=== PATIENT | male | born 1975 | race Two or more races ===

== ENCOUNTER 2020-08-19 23:23 | Emergency (ER) | payer OTHER, SELFPAY ==
--- NOTE | ~2020-08-19 | XR_ITS ---
EXAMINATION: XR ABDOMEN KUB CLINICAL INDICATION: constipation? COMPARISON: CT dated 06/03/2019 TECHNIQUE: AP view of the abdomen. FINDINGS: The bowel gas pattern is normal with no evidence of ileus or obstruction. There is a physiologic amount of stool, most notably within the cecum and ascending colon. No unusual soft tissue calcifications are noted. 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 XR/XR KUB IMPRESSION: Physiologic stool volume. No evidence of obstruction or ileus.
[2020-08-19 23:36] VITALS: BP 135/88; PULSE 56; RESP 18; TEMP 36.8; O2SAT 100; BMI 25.1
--- NOTE | 2020-08-20 01:23 | ED.GENADULT ---
HPI - General Adult General Chief complaint: General Medical Stated complaint: Multiple complaints Time Seen by Provider: 08/20/20 00:33 Source: patient Mode of arrival: ambulatory Limitations: no limitations History of Present Illness HPI narrative: Patient comes to the emergency room complaining of constipation, rectal bleeding. However, patient has changed his chief complain multiple times, initially he said that he was here for constipation, then he said he was here for thrush, then he complained of feeling tired, then complain of painless rectal bleeding. Patient is a poor historian. Patient keeps changing his story when the onset of each complaint was, ranging between 3 months to a year. Then once again, patient changed his chief complaint to insomnia. Related Data Allergies Allergy/AdvReac Type Severity Reaction Status Date / Time No Known Allergies Allergy Verified 08/19/20 23:36 Review of Systems Review of Systems: Constitutional : No Weight loss, No Fever, No Chills, No Night Sweats, complaining of chronic fatigue ENT/Mouth : No Hearing loss, No Ear Pain, No Nasal Congestion, No Sinus Pain, No Hoarseness, No sore throat, No Rhinorrhea, No Swallowing Difficulty Eyes: No Eye Pain, No Swelling, No Redness, No Foreign Body, No Discharge, No Vision Changes Cardiovascular : No Chest Pain, No SOB, No Dyspnea on Exertion, No Orthopnea, No Edema, No Palpitations Respiratory : No Cough, No Sputum, No Wheezing, No Smoke Exposure, No Dyspnea Gastrointestinal : No Nausea, No Vomiting, No Diarrhea, planing of Constipation, No abdominal Pain, complaining rectal bleeding, no rectal pain Genitourinary : no irregular bleeding, No Dysuria, No Urinary Frequency, No Hematuria, No Urinary Incontinence, No Urgency, No Flank Pain, No Urinary Flow Changes, No Hesitancy Musculoskeletal : No joint pain, No Myalgias, No Joint Swelling Skin : No Skin Lesions, No rash Neuro : No Weakness, No Numbness, No Paresthesias, No Loss of Consciousness, No Dizziness, No Headache Psych : No Anxiety/Panic, No Depression, No SI/HI/AH/VH, No Social Issues, Heme/Lymph: No Bruising, No Bleeding,No Lymphadenopathy Endocrine : No Polyuria, No Polydipsia, No Temperature Intolerance PMFSH Past Medical History Medical History (Updated 08/20/20 @ 02:14 by Tere Boateng MD) Colitis Goiter Hypertension Hypothyroidism Social History Social History Smoking Status: Never smoker Use of substances other than those prescribed or required for medical reasons: Yes Substance Use Type: Marijuana Advance Directives: No Physical Exam Vital Signs: Vital Signs: Last Vital Signs Temp 98.3 F 08/19/20 23:36 Pulse 56 08/19/20 23:36 Resp 18 08/19/20 23:36 BP 135/88 08/19/20 23:36 Pulse Ox 100 08/19/20 23:36 Body Mass Index 25.1 Appearance: Alert. Oriented X3. No acute distress. Eyes: Pupils equal, round and reactive to light. ENT: Pharynx normal. Neck: Normal inspection. Neck supple. No lymph nodes noted. No crepitus CVS: Normal heart rate and rhythm. Pulses normal. Normal S1 and S2 Respiratory: No respiratory distress. Breath sounds normal. No Wheezing. No rales Abdomen: Soft and nontender. No rigidity. No distention. good BS x4, rectal exam: No internal or external hemorrhoids, no anal fissures, brown stool on NIKOS Skin: Skin warm and dry. Normal skin color. Normal skin turgor. Extremities: No lower extremity edema. No lower extremity edema. No Lacerations. No Rash Neuro: Oriented X 3. No motor deficit. No sensory deficit. Moving all extermities. No slurred speech. Course Course Course Narrative: Discussed the labs and imaging with the patient, there is no acute pathology Medical Decision Making Lab Data Result diagrams: 08/20/20 01:08/20/20 01:28 Labs: Lab Results 08/20/20 08/20/20 08/20/20 Range/Units 01:28 01:28 01:28 WBC 7.3 (4.8-10.8) X10*3/uL RBC 4.02 L (4.60-5.80) X10*6/uL Hgb 13.2 L (14.0-18.0) g/dl Hct 37.6 L (42-52) % MCV 93.5 (80-98) fL MCH 32.8 (27.0-33.0) pg MCHC 35.1 (31.0-36.0) g/dl RDW 13.3 (11.0-16.0) % Plt Count 175 (160-400) X10*3/uL MPV 9.0 L (9.4-12.4) fL Immature Gran % (Auto) 0.3 (0.0-0.4) % Neut % (Auto) 52.3 (45-73) % Lymph % (Auto) 40.3 H (20-40) % [place] % (Auto) 4.0 (2-11) % Eos % (Auto) 2.3 (0-4) % Baso % (Auto) 0.8 (0-2) % Lymph # (Auto) 3.0 (1.2-4.9) X10*3/uL [place] # (Auto) 0.3 (0.1-1.2) X10*3/uL Eos # (Auto) 0.2 (0.0-0.4) X10*3/uL Baso # (Auto) 0.1 (0.0-0.2) X10*3/uL Abs Immat Gran (auto) 0.02 (0.00-0.03) X10*3/uL Absolute Neuts (auto) 3.8 (2.0-8.3) X10*3/uL Absolute Nucleated RBC 0.000 (0.0-0.012) X10*3/uL Nucleated RBC % (auto) 0.0 (0.0-0.2) /100WBC Sodium 138 (135-145) mmol/L Potassium 3.9 (3.3-5.1) mmol/L Chloride 101 (96-108) mmol/L Carbon Dioxide 30 H (22-29) mmol/L Anion Gap 11 L (12-20) BUN 11 (9-16) mg/dL Creatinine 0.88 (0.5-1.4) mg/dL Estim Creat Clear Calc 101.4 Estimated GFR > 60 Random Glucose 87 (60-115) mg/dL Calcium 9.4 (8.4-10.2) mg/dL Total Bilirubin 0.5 (0.0-1.0) mg/dL Direct Bilirubin < 0.2 (0.0-0.5) mg/dL AST 22 (5-37) U/L ALT 12 (0-40) U/L Alkaline Phosphatase 51 (39-117) U/L Total Protein 7.7 (6.5-8.0) g/dL Albumin 5.1 H (3.5-5.0) g/dL Stool Occult Blood NEG (NEG) Imaging Data KUB: Radiologist's impression: The bowel gas pattern is normal with no evidence of ileus or obstruction. There is a physiologic amount of stool, most notably within the cecum and ascending colon. No unusual soft tissue calcifications are noted. 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 XR/XR KUB IMPRESSION: Physiologic stool volume. No evidence of obstruction or ileus. Discharge Plan Discharge Clinical Impression: Fatigue, Abdominal distension Patient Disposition: Home, Self-Care Instructions: Fatigue (ED) Additional Instructions: Please follow-up with your primary care physician tomorrow. If you have any worsening or new symptoms, please return to the emergency room or call 911
[2020-08-20 01:33] LABS: MANUAL DIFF FLAG NO; OBS1 NEG (NEG)
[2020-08-20 01:34] LABS: Basophils Absolute Auto 0.1 X10*3/uL (0.0-0.2); Basophils Percent Auto 0.8 % (0-2); Eosinophils Absolute Auto 0.2 X10*3/uL (0.0-0.4); Eosinophils Percent Auto 2.3 % (0-4); Hematocrit 37.6 % (42-52); Hemoglobin 13.2 g/dl (14.0-18.0); Imm Gran Abs Auto 0.02 X10*3/uL (0.00-0.03); Imm Gran Pct Auto 0.3 % (0.0-0.4); Lymphocytes Percent Auto 40.3 % (20-40); Mean Corpuscular HGB Conc 35.1 g/dl (31.0-36.0); Mean Corpuscular Hemoglobin 32.8 pg (27.0-33.0); Mean Corpuscular Volume 93.5 fL (80-98); Monocytes Absolute Auto 0.3 X10*3/uL (0.1-1.2); Neutrophils Absolute Auto 3.8 X10*3/uL (2.0-8.3); Neutrophils Percent Auto 52.3 % (45-73); OBS Int Ctl Valid YES; Platelet Count 175 X10*3/uL (160-400); Red Blood Count 4.02 X10*6/uL (4.60-5.80); Red Cell Distribution Width 13.3 % (11.0-16.0); White Blood Count 7.3 X10*3/uL (4.8-10.8)
[2020-08-20 02:03] LABS: Alanine Aminotransferase 12 U/L (0-40); Albumin Level 5.1 g/dL (3.5-5.0); Alkaline Phosphatase 51 U/L (39-117); Anion Gap 11 (12-20); Aspartate Amino Transferase 22 U/L (5-37); Bilirubin Direct < 0.2 mg/dL (0.0-0.5); Bilirubin Total 0.5 mg/dL (0.0-1.0); Blood Urea Nitrogen 11 mg/dL (9-16); Calcium 9.4 mg/dL (8.4-10.2); Carbon Dioxide 30 mmol/L (22-29); Chloride 101 mmol/L (96-108); Creatinine Clr Calc Pharmacy 101.4; Estimated Glomerular Filt Rate > 60; Glucose Random 87 mg/dL (60-115); Potassium 3.9 mmol/L (3.3-5.1); Sodium 138 mmol/L (135-145); Total Protein 7.7 g/dL (6.5-8.0)
== END 2020-08-20 02:35 | disposition home or self-care (01) ==
PROVIDERS: Emergency Provider Emergency Medicine
DX: R14.0 Abdominal distension (gaseous) (principal); K59.00 Constipation, unspecified; R53.83 Other fatigue; F12.90 Cannabis use, unspecified, uncomplicated; Z79.899 Other long term (current) drug therapy
CPT/HCPCS: 36415; 74018; 80048; 80076; 82272; 85025; 99284

== ENCOUNTER 2021-11-21 13:24 | Emergency (ER) | payer OTHER, SELFPAY ==
[2021-11-21 13:27] VITALS: BP 179/92; PULSE 75; RESP 19; TEMP 36.6; O2SAT 100; BMI 25.8
--- NOTE | 2021-11-21 13:36 | ED_ITS ---
HPI - Psych General Chief Complaint: Psychiatric Symptoms Stated Complaint: crisis Time Seen by Provider: 11/21/21 13:35 Source: patient and EMS Mode of arrival: EMS Limitations: no limitations History of Present Illness HPI Narrative: Patient is a 46 year old male presenting to the emergency department today with suicidal ideation. Patient states that his kids got taken from him and now he is suicidal. Patient denies any dizziness, lightheadedness, abdominal pain, nausea, vomiting, fever, chills, blurry vision, double vision, loss of vision, chest pain, difficulty breathing, shortness of breath, back pain, night sweats, pain with urination, increased urinary frequency, increased urinary urgency, blood in his urine or stool, syncope or a near syncopal episode, recent trauma or falls, bowel incontinence, bladder incontinence, bowel retention, bladder retention, or any other complaints at this time. MD complaint: suicidal ideation and feels depressed Onset (ago): day(s) Duration: constant History of same: Yes Relieving factors: none Exacerbating factors: none Context: significant life stressor Associated psychiatric symptoms: none Associated symptoms: denies other symptoms Treatments prior to arrival: none Related Data Allergies Allergy/AdvReac Type Severity Reaction Status Date / Time No Known Allergies Allergy Verified 08/19/20 23:36 Review of Systems Constitutional: Constitutional: Reports no additional constitutional complaints, Denies chills, Denies fever(s) and Denies night sweats Eyes: Eyes: Reports no additional eye complaints, Denies blurry vision, Denies change in vision, Denies diplopia, Denies eye discharge, Denies loss of vision and Denies eye pain ENT: Denies dizziness Cardiovascular: Cardiovascular: Reports no additional cardiovascular complaints, Denies chest pain, Denies lightheadedness, Denies Loss of Conscious ness and Denies dyspnea Respiratory: Respiratory: Reports no additional respiratory complaints and Denies dyspnea Gastrointestinal: Gastrointestinal: Reports no additional gastrointestinal com plaints, Denies abdominal pain, Denies melena, Denies hematochezia, Denies change in bowel habits and Denies change in stool character Genitourinary: Genitourinary: Reports no additional male genitourinary complaints, Denies hematuria, Denies oliguria, Denies difficulty urinating, Denies dysuria, Denies urinary frequency, Denies urinary hesitancy, Denies urinary incontinence and Denies urinary urgency Musculoskeletal: Musculoskeletal: Reports no additional musculoskeletal complaints, Denies numbness and Denies tingling Neurologic: Denies dizziness, Denies loss of vision, Denies numbness and Denies tingling Psychiatric: Psychiatric: Reports no additional psychiatric complaints, Reports depression and Reports suicidal ideation Endocrine: Endocrine: Reports no additional endocrine complaints Hematologic/Lymphatic: Hematologic/Lymphatic: Reports no additional hematologic/lymphatic complaints Allergic/Immunologic: Allergic/Immunologic: Reports no additional allergic/immunologic complaints PMFSH Past Medical History Attestation statement: The following information was validated with the patient. Source: old records reviewed Medical History Colitis Goiter Hypertension Hypothyroidism Social History Social History Substance Use Type: Marijuana Advance Directives: No Advance Directives Information Provided: No Physical Exam Vital Signs: Vital Signs: Last Vital Signs Temp 97.9 F 11/21/21 16:19 Pulse 74 11/21/21 16:19 Resp 18 11/21/21 16:19 BP 132/65 11/21/21 16:19 Pulse Ox 95 11/21/21 16:19 O2 Del Method 11/21/21 16:19 BMI result Body Mass Index 25.8 Const: General: cooperative, no acute distress, alert and awake Nutritional Appearance: well nourished Orientation/consciousness: patient oriented x3 Limitations: no limitations HEENT: Head: Yes normal to inspection and Yes atraumatic Ears: hearing grossly normal bilaterally and external ears normal General nose exam: Normal external nose present, no nasal discharge noted and no epistaxis Face and sinus: Yes normal facial exam, No abrasion and No laceration Mouth: Normal oral and palatal mucosa present, no drooling and no muffled voice Eyes: General: appearance normal, both eyes and all related structures Periorbital: periorbital findings normal Eyelids: Yes eyelids normal Conjunctivae: conjunctivae normal Pupils: Equal, round and reactive pupils present EOM: EOMs intact bilaterally Neck: Neck: Yes normal visual inspection, Yes full ROM and Yes no lymphadenopathy Chest: Chest palpation & inspection: normal inspection of the chest Resp: Effort & Inspection: normal respiratory effort and able to speak in complete sentences Auscultation: clear to auscultation bilaterally Cardio: Rate: regular rate Rhythm: regular rhythm GI: Inspection: Yes normal to inspection Neuro: General: patient oriented x3 and moves all extremities Cranial nerves: Yes Equal, round and reactive pupils present Cognition (Neuro): normal cognition Motor exam (neuro): 5/5 motor strength present throughout Sensory Exam: Normal double simultaneous stimulation for sensation Coordination: [id number] test normal Extrem: General: Yes normal to inspection, Yes full ROM and Yes capillary refill normal Psych: Appearance: grossly normal Mental Status: mental status grossly normal Affect: normal affect Attitude: cooperative Thought process: Normal thought process present Thought content: Suicidality present Insight: Good insight present (Psych) MDM - Psych MDM Narrative Medical decision making narrative: Patient is a 46 year old male presenting to the emergency department today with suicidal ideation. Patient's physical exam was unremarkable. Patient's blood work was unremarkable. I explained my physical exam findings as well as all test results to the patient. I answered all questions asked by the patient. Patient is still awaiting BHN/Crisis evaluation. Patient verbalized agreement and understanding with this treatment plan and awaiting BHN/Crisis evaluation. Differential Diagnosis Differential diagnosis: Likely suicidal ideation Medical Records Attestation: I reviewed the patient's medical records. Lab Data Attestation: I reviewed the patient's lab results. Result diagrams: 11/21/21 13:56 11/21/21 13:56 Labs: Lab Results 11/21/21 11/21/21 11/21/21 Range/Units 13:56 13:56 13:56 WBC 6.2 (4.8-10.8) X10*3/uL RBC 3.62 L (4.60-5.80) X10*6/uL Hgb 11.5 L (14.0-18.0) g/dl Hct 33.2 L (42.0-52.0) % MCV 91.7 (80.0-98.0) fL MCH 31.8 (27.0-33.0) pg MCHC 34.6 (31.0-36.0) g/dl RDW 14.1 (11.0-16.0) % Plt Count 177 (160-400) X10*3/uL MPV 8.3 L (9.4-12.4) fL Immature Gran % (Auto) 0.6 H (0.0-0.4) % Neut % (Auto) 71.6 (45-73) % Lymph % (Auto) 22.5 (20-40) % [place] % (Auto) 3.9 (2-11) % Eos % (Auto) 0.8 (0-4) % Baso % (Auto) 0.6 (0-2) % Lymph # (Auto) 1.4 (1.2-4.9) X10*3/uL [place] # (Auto) 0.2 (0.1-1.2) X10*3/uL Eos # (Auto) 0.1 (0.0-0.4) X10*3/uL Baso # (Auto) 0.0 (0.0-0.2) X10*3/uL Abs Immat Gran (auto) 0.04 H (0.00-0.03) X10*3/uL Absolute Neuts (auto) 4.5 (2.0-8.3) x10*3/uL Absolute Nucleated RBC 0.000 (0.0-0.012) X10*3/uL Nucleated RBC % (auto) 0.0 (0.0-0.2) /100WBC Sodium 135 (135-145) mmol/L Potassium 3.6 (3.3-5.1) mmol/L Chloride 99 (96-108) mmol/L Carbon Dioxide 29 (22-29) mmol/L Anion Gap 11 L (12-20) BUN 9 (9-16) mg/dL Creatinine 1.06 (0.5-1.4) mg/dL Estim Creat Clear Calc 82.4 Estimated GFR > 60 Random Glucose 128 H D (60-115) mg/dL Calcium 9.3 (8.4-10.2) mg/dL Total Bilirubin 0.3 (0.0-1.0) mg/dL AST 18 (5-37) U/L ALT 9 (0-40) U/L Alkaline Phosphatase 56 (39-117) U/L Total Protein 7.1 (6.5-8.0) g/dL Albumin 4.5 (3.5-5.0) g/dL COVID-19 (KASHIF) Negative (Negative) COVID-19 Clin Com See Note Discharge Plan Discharge Clinical Impression: Depression, Suicidal ideation Patient Disposition: Still a Patient Print Language: Spanish
[2021-11-21 14:01] LABS: MANUAL DIFF FLAG NO
[2021-11-21 14:03] LABS: Basophils Percent Auto 0.6 % (0-2); Eosinophils Absolute Auto 0.1 X10*3/uL (0.0-0.4); Eosinophils Percent Auto 0.8 % (0-4); Hematocrit 33.2 % (42.0-52.0); Hemoglobin 11.5 g/dl (14.0-18.0); Imm Gran Abs Auto 0.04 X10*3/uL (0.00-0.03); Imm Gran Pct Auto 0.6 % (0.0-0.4); Lymphocytes Absolute Auto 1.4 X10*3/uL (1.2-4.9); Lymphocytes Percent Auto 22.5 % (20-40); Mean Corpuscular HGB Conc 34.6 g/dl (31.0-36.0); Mean Corpuscular Hemoglobin 31.8 pg (27.0-33.0); Mean Corpuscular Volume 91.7 fL (80.0-98.0); Mean Platelet Volume 8.3 fL (9.4-12.4); Monocytes Absolute Auto 0.2 X10*3/uL (0.1-1.2); Monocytes Percent Auto 3.9 % (2-11); Neutrophils Absolute Auto 4.5 x10*3/uL (2.0-8.3); Neutrophils Percent Auto 71.6 % (45-73); Platelet Count 177 X10*3/uL (160-400); Red Blood Count 3.62 X10*6/uL (4.60-5.80); Red Cell Distribution Width 14.1 % (11.0-16.0); White Blood Count 6.2 X10*3/uL (4.8-10.8)
[2021-11-21 14:19] LABS: Alanine Aminotransferase 9 U/L (0-40); Albumin Level 4.5 g/dL (3.5-5.0); Alkaline Phosphatase 56 U/L (39-117); Anion Gap 11 (12-20); Aspartate Amino Transferase 18 U/L (5-37); Bilirubin Total 0.3 mg/dL (0.0-1.0); Blood Urea Nitrogen 9 mg/dL (9-16); Calcium 9.3 mg/dL (8.4-10.2); Carbon Dioxide 29 mmol/L (22-29); Chloride 99 mmol/L (96-108); Creatinine Clr Calc Pharmacy 82.4; Estimated Glomerular Filt Rate > 60; Glucose Random 128 mg/dL (60-115); Potassium 3.6 mmol/L (3.3-5.1); Sodium 135 mmol/L (135-145); Total Protein 7.1 g/dL (6.5-8.0)
[2021-11-21 14:23] LABS: COVID-19 Test Negative (Negative); IDNOW Serial# 9DB6401D
--- NOTE | 2021-11-21 14:27 | PC.NURSE ---
this typewriter mechanic assumed care of this pt at 1420. pt brought over to POD via wheelchair. pt compliant with liner roll changer. no issues observed/reported. will continue to observe.
[2021-11-21 16:19] VITALS: BP 132/65; PULSE 74; RESP 18; TEMP 36.6; O2SAT 95
[2021-11-21] MEDS: Acetaminophen 325 MG TABLET 650 MG PO (16:36)
--- NOTE | 2021-11-21 18:18 | PC.NURSE ---
PT'S GIRLFRIEND MAKAYLA EMERGENCY CONTACT [phone] AT BEDSIDE. PT CRYING AND REQUESTING TO GO HOME. PER GIRLFRIEND PT CANNOT GO HOME WITH HER BECAUSE HE IS NOT ALLOWED TO BE AROUND HER DAUGHTER. SHE ALSO STATES THAT SHE IS HOMELESS AND STAYS WITH HER CLIENT.
[2021-11-21 19:52] VITALS: BP 150/91; PULSE 55; RESP 16; TEMP 36.5; O2SAT 99
[2021-11-21 23:19] VITALS: BP 144/76; PULSE 53; RESP 16; TEMP 36; O2SAT 96
[2021-11-21 23:47] LABS: Amphetamine Screen Urine Not Detected (Not Detect); Barbiturates, Urine Not Detected (Not Detect); Benzodiazepines Screen Urine Not Detected (Not Detect); Cannabinoid Screen Urine POSITIVE (Not Detect); Cocaine Screen Urine Not Detected (Not Detect); Fentanyl, urine Not Detected (Not Detect); Opiate Screen Urine Not Detected (Not Detect); Phencyclidine Screen Urine Not Detected (Not Detect)
[2021-11-21] MEDS: Melatonin 3 MG TABLET 6 MG PO (23:57)
--- NOTE | 2021-11-22 06:51 | PC.NURSE ---
Patient slept through the night, no distress observed/reported, VSS, behavior non concerning, awaiting BHN evaluation in the morning, patient is currently not on any medication, will continue to monitor.
--- NOTE | 2021-11-22 10:35 | PC.NURSE ---
PT SEEN BY [facility] CLINICIAN AND IS NOW CLEAR FOR DISCHARGE. PT WILL BE DAIRY FROZEN MANAGER BY HIS GIRLFRIEND MAKAYLA. [facility] CLINICIAN IS CURRENTLY ARRANGING TIMEFRAME FOR MAKAYLA TO PICK HIM UP. NO COMPLAINTS.
== END 2021-11-22 10:53 | disposition home or self-care (01) ==
PROVIDERS: Physician Assistant Medical; Emergency Provider Student in an Organized Health Care Education/Training Program
DX: F33.1 Major depressive disorder, recurrent, moderate (principal); R45.851 Suicidal ideations; F12.90 Cannabis use, unspecified, uncomplicated; Z79.899 Other long term (current) drug therapy; Z20.822 Contact with and (suspected) exposure to COVID-19
CPT/HCPCS: 80053; 80307; 85025; 87635; 99285

== ENCOUNTER 2022-10-01 16:35 | Emergency (ER) | payer OTHER, SELFPAY ==
--- NOTE | ~2022-10-01 | XR_ITS ---
EXAMINATION: XR KUB, XR chest 2V CLINICAL INFORMATION: Rib pain . Constipation. COMPARISON: 06/01/2016 TECHNIQUE: PA and lateral views of the chest. One view, 2 images of the abdomen. FINDINGS: Chest: The lungs are well expanded. There is no focal consolidation, edema, or effusion. No pneumothorax. The cardiomediastinal silhouette is within normal limits. No acute osseous abnormality. ABDOMEN: Normal bowel gas pattern without dilated loops of bowel. No obstruction. Scattered gas and stool throughout the colon. Mild stool burden throughout the right hemicolon with decompressed appearance of the left colon. No acute osseous abnormality. XR/XR KUB IMPRESSION: 1. Clear lungs. No focal rib abnormality identified. 2. Nonobstructive bowel gas pattern. Mild stool burden throughout the right hemicolon.
--- NOTE | ~2022-10-01 | XR_ITS ---
EXAMINATION: XR KUB, XR chest 2V CLINICAL INFORMATION: Rib pain . Constipation. COMPARISON: 06/01/2016 TECHNIQUE: PA and lateral views of the chest. One view, 2 images of the abdomen. FINDINGS: Chest: The lungs are well expanded. There is no focal consolidation, edema, or effusion. No pneumothorax. The cardiomediastinal silhouette is within normal limits. No acute osseous abnormality. ABDOMEN: Normal bowel gas pattern without dilated loops of bowel. No obstruction. Scattered gas and stool throughout the colon. Mild stool burden throughout the right hemicolon with decompressed appearance of the left colon. No acute osseous abnormality. XR/XR chest 2V IMPRESSION: 1. Clear lungs. No focal rib abnormality identified. 2. Nonobstructive bowel gas pattern. Mild stool burden throughout the right hemicolon.
--- NOTE | 2022-10-01 16:38 | ECG_ITS ---
Test Reason : cx pain Blood Pressure : / mmHG Vent. Rate : 057 BPM Atrial Rate : 057 BPM P-R Int : 160 ms QRS Dur : 092 ms QT Int : 420 ms P-R-T Axes : 023 -27 -03 degrees QTc Int : 408 ms Sinus bradycardia Otherwise normal ECG When compared with ECG of 11-OCT-2015 04:54, T wave inversion now evident in Inferior leads Referred By: Generic ED Physician Electronically Signed By:Mike Hawkins
[2022-10-01 17:26] VITALS: BP 169/97; PULSE 68; RESP 16; TEMP 36.4; O2SAT 100; BMI 24.7
--- NOTE | 2022-10-01 17:27 | ED_ITS ---
HPI - Chest Pain General Chief Complaint: General Medical <GEORGE Briones - Last Filed: 10/01/22 17:38> Stated Complaint: Chest pain <GEORGE Briones - Last Filed: 10/01/22 17:38> Time Seen by Provider: 10/01/22 21:24 <GEORGE Briones - Last Filed: 10/01/22 17:38> Source: patient and family <Edgardo Trujillo MD - Last Filed: 10/01/22 22:53> Mode of arrival: ambulatory <Edgardo Trujillo MD - Last Filed: 10/01/22 22:53> Limitations: no limitations <Edgardo Trujillo MD - Last Filed: 10/01/22 22:53> History of Present Illness HPI narrative: 47-year-old male presents with chest pain. The chest pain has been constant for 1 month. The pain is worse with movement and deep inspiration. Bilateral. Describes the pain as sharp and achy. The pain is so severe he can not sleep. He also has associated shortness of breath. He has had no fevers or chills. No swelling in the lower extremities. No history of PE or DVT. The pain is not worse with exertion. He has no significant cardiac history. Patient also complains of mucousy stool. This is also been going on for quite some time. Had endoscopies have never determined a cause of his symptoms. He is on magnesium citrate on a daily basis for constipation. He denies any nausea vomiting. Patient is quite upset frustrated due to the lack of diagnoses. He does not have a primary care provider at this time. <Edgardo Trujillo MD - Last Filed: 10/01/22 22:53> Related Data Home Medications: Previous Rx's Medication Instructions Recorded celecoxib 100 mg capsule (Celebrex) 200 mg PO DAILY #14 caps 10/01/22 cyclobenzaprine 10 mg tablet 10 mg PO TID PRN muscle spasm #10 10/01/22 tabs gabapentin 300 mg capsule 300 mg PO TID #20 caps 10/01/22 <GEORGE Briones Last Filed: 10/01/22 17:38> Allergies/Adverse Reactions: Allergies Allergy/AdvReac Type Severity Reaction Status Date / Time No Known Allergies Allergy Verified 08/19/20 23:36 <GEORGE Briones Last Filed: 10/01/22 17:38> [facility] Past Medical History Medical History: Medical History Colitis Goiter Hypertension Hypothyroidism <GEORGE Briones - Last Filed: 10/01/22 17:38> Social History Social History: Social History Alcohol intake: never Smoked in Last 30 Days: No Use of substances other than those prescribed or required for medical reasons: No Substance Use Type: Marijuana Advance Directives: No Advance Directives Information Provided: No <GEORGE Briones - Last Filed: 10/01/22 17:38> Physical Exam Vital Signs: Vital Signs: Last Vital Signs Temp 98.7 F 10/01/22 21:08 Pulse 52 10/01/22 21:08 Resp 16 10/01/22 21:08 BP 188/97 H 10/01/22 21:08 Pulse Ox 100 10/01/22 21:08 O2 Del Method Room Air 10/01/22 21:08 BMI result Body Mass Index 24.7 <GEORGE Briones - Last Filed: 10/01/22 17:38> Vital Signs: Last Vital Signs Temp 98.7 F 10/01/22 21:08 Pulse 52 10/01/22 21:08 Resp 16 10/01/22 21:08 BP 188/97 H 10/01/22 21:08 Pulse Ox 100 10/01/22 21:08 O2 Del Method Room Air 10/01/22 21:08 BMI result Body Mass Index 24.7 <Edgardo Trujillo MD - Last Filed: 10/01/22 22:53> GEN: Well developed, no acute distress, alert, oriented, anxious and tearful HEENT: Normocephalic, atraumatic, normal external ears, nose appears normal, no oropharyngeal edema or exudates Eyes: Normal to appearance Neck: Supple, no lymphadenopathy Respiratory: Talks in complete sentences, no respiratory distress, clear to auscultation bilaterally Cardiovascular: Regular rate and rhythm, no murmurs rubs or gallops Abdomen: Soft, nontender, nondistended, no guarding, no rebound Back: No CVA tenderness Extremities: No clubbing cyanosis or edema Neurologic: No focal neurologic deficits, cranial nerves 2-12 intact, strength is 5/5 bilaterally Skin: No rash Chest: Reproducible chest wall tenderness bilaterally to palpation <Edgardo Trujillo MD - Last Filed: 10/01/22 22:53> Course Course Course Narrative: RME: 47yo M w/PMHx thyroid issue (noncompliant w/meds) c/o bone/whole body pain, bilateral rib/chest & abdominal pain x1 mos. Reports constipation w/o BM x1 mos. denies fever, chills, N/V. abdomen soft & nontender EKG, labs, UA, KUB ordered Full HPI, ROS and PE to be performed by primary ED provider. <GEORGE Briones - Last Filed: 10/01/22 17:38> Reevaluation(s) Reevaluation #1: Workup is completed this time. There is no clear etiology for symptoms. I suspect his chest pain is due to musculoskeletal complaints possibly costochondritis. Patient would benefit from nonsteroidal anti-inflammatory pain medications as well as other analgesics. At regarding his constipation and mucousy stool, I recommend follow-up with GI. <Edgardo Trujillo MD - Last Filed: 10/01/22 22:53> Time: 21:55 <Edgardo Trujillo MD - Last Filed: 10/01/22 22:53> Reevaluation #2: patient would like to be discharged at this time. <Edgardo Trujillo MD - Last Filed: 10/01/22 22:53> Time: 22:53 <Edgardo Trujillo MD - Last Filed: 10/01/22 22:53> Medications Administered Discontinued Medications Generic Name Dose Route Start Last Admin Trade Name Alexus PRN Reason Stop Dose Admin Cyclobenzaprine HCl 10 mg 10/01/22 21:50 10/01/22 21:58 Cyclobenzaprine Hcl 10 Mg Tablet PO 10/01/22 21:51 10 mg ONCE ONE Administration Gabapentin 300 mg 10/01/22 21:50 10/01/22 21:58 Gabapentin 300 Mg Capsule PO 10/01/22 21:51 300 mg ONCE ONE Administration Ketorolac Tromethamine 30 mg 10/01/22 21:50 10/01/22 21:59 Ketorolac Tromethamine 30 Mg/Ml Vial IM 10/01/22 21:51 30 mg ONCE ONE Administration Oxycodone HCl 5 mg 10/01/22 21:50 10/01/22 21:58 Oxycodone Hcl Immed Release 5 Mg Tablet PO 10/01/22 21:51 5 mg ONCE ONE Administration <GEORGE Briones - Last Filed: 10/01/22 17:38> Medications Administered Discontinued Medications Generic Name Dose Route Start Last Admin Trade Name Alexus PRN Reason Stop Dose Admin Cyclobenzaprine HCl 10 mg 10/01/22 21:50 10/01/22 21:58 Cyclobenzaprine Hcl 10 Mg Tablet PO 10/01/22 21:51 10 mg ONCE ONE Administration Gabapentin 300 mg 10/01/22 21:50 10/01/22 21:58 Gabapentin 300 Mg Capsule PO 10/01/22 21:51 300 mg ONCE ONE Administration Ketorolac Tromethamine 30 mg 10/01/22 21:50 10/01/22 21:59 Ketorolac Tromethamine 30 Mg/Ml Vial IM 10/01/22 21:51 30 mg ONCE ONE Administration Oxycodone HCl 5 mg 10/01/22 21:50 10/01/22 21:58 Oxycodone Hcl Immed Release 5 Mg Tablet PO 10/01/22 21:51 5 mg ONCE ONE Administration <Edgardo Trujillo MD - Last Filed: 10/01/22 22:53> Medical Decision Making Medical Decision Making [facility] Narrative: 47-year-old male presents with 2 complaints. First of all he complains of chest pain. Chest pain has been going on for 1 month and is constant. Associated with movement, deep inspiration. Sometimes shortness of breath. On exam, he has reproducible chest wall tenderness to palpation. His cardiopulmonary exam is otherwise unremarkable. There is no evidence of lower extremity edema. Doubt PE, DVT, acute coronary syndrome, pneumonia, bronchitis. I suspect this is musculoskeletal in nature. Patient would probably be treated best with anti-inflammatory pain medications for 1 month in follow-up with a primary care provider at that time. The meantime, will obtain an EKG, laboratory analysis no chest X-ray. Also complains of mucousy stool. This has been an ongoing issue for quite some time. He has had significant workup which has been unremarkable. He is taking magnesium citrate for constipation. Differential diagnosis could tibial overgrowth, dysmotility. Given the duration of symptoms, I would recommend follow-up with Gastroenterology. There is no acute imaging required at this time. There is no rebound or guarding. Doubt catastrophic abdominal diagnoses. <Edgardo Trujillo MD - Last Filed: 10/01/22 22:53> Differential Diagnosis Differential Diagnoses: The differential diagnosis associated with the presentation includes (Will see above) <Edgardo Trujillo MD - Last Filed: 10/01/22 22:53> Lab Data MDM Lab Attestation statement: I reviewed the patient's lab results. <Edgardo Trujillo MD - Last Filed: 10/01/22 22:53> Result Diagrams: 10/01/22 18:00 10/01/22 18:00 <GEORGE Briones - Last Filed: 10/01/22 17:38> Labs: Lab Results 10/01/22 10/01/22 10/01/22 Range/Units 18:00 18:00 18:00 WBC 4.1 L (4.8-10.8) X10*3/uL RBC 3.98 L (4.60-5.80) X10*6/uL Hgb 12.3 L (14.0-18.0) g/dl Hct 36.2 L (42.0-52.0) % MCV 91.0 (80.0-98.0) fL MCH 30.9 (27.0-33.0) pg MCHC 34.0 (31.0-36.0) g/dl RDW 13.0 (11.0-16.0) % Plt Count 177 (160-400) X10*3/uL MPV 9.5 (9.4-12.4) fL Immature Gran % (Auto) 0.2 (0.0-0.4) % Neut % (Auto) 61.2 (45-73) % Lymph % (Auto) 31.9 (20-40) % [place] % (Auto) 3.6 (2-11) % Eos % (Auto) 1.9 (0-4) % Baso % (Auto) 1.2 (0-2) % Lymph # (Auto) 1.3 (1.2-4.9) X10*3/uL [place] # (Auto) 0.2 (0.1-1.2) X10*3/uL Eos # (Auto) 0.1 (0.0-0.4) X10*3/uL Baso # (Auto) 0.1 (0.0-0.2) X10*3/uL Abs Immat Gran (auto) 0.01 (0.00-0.03) X10*3/uL Absolute Neuts (auto) 2.5 (2.0-8.3) x10*3/uL Absolute Nucleated RBC 0.000 (0.0-0.012) X10*3/uL Nucleated RBC % (auto) 0.0 (0.0-0.2) /100WBC Sodium 141 (135-145) mmol/L Potassium 4.1 (3.3-5.1) mmol/L Chloride 106 (96-108) mmol/L Carbon Dioxide 27 (22-29) mmol/L Anion Gap 12 (12-20) BUN 15 (9-16) mg/dL Creatinine 1.07 (0.5-1.4) mg/dL Estim Creat Clear Calc 80.7 Estimated GFR > 60 Random Glucose 116 H (60-115) mg/dL Calcium 9.3 (8.4-10.2) mg/dL Magnesium 2.0 (1.6-2.6) mg/dL Total Bilirubin 0.4 (0.0-1.0) mg/dL Direct Bilirubin 0.1 (0.0-0.5) mg/dL AST 18 (5-37) U/L ALT 8 (0-40) U/L Alkaline Phosphatase 41 (39-117) U/L Troponin I High Sens (<3.5-35.0) ng/L Total Protein 7.0 (6.5-8.0) g/dL Albumin 4.8 (3.5-5.0) g/dL Lipase 15 (8-78) U/L TSH 75.14 H (0.32-4.0) uIU/mL Free T4 < 0.42 L (0.71-1.85) ng/dL Urine Color Urine Appearance Urine pH (5.0-9.0) Ur Specific [place] (1.005-1.025) Urine Protein (Neg-Trace) mg/dL Urine Glucose (UA) (Negative) mg/dL Urine Ketones (Negative) mg/dL Urine Blood (Negative) Urine Nitrite (Negative) Ur Leukocyte Esterase (Negative) 10/01/22 10/01/22 Range/Units 18:00 19:19 WBC (4.8-10.8) X10*3/uL RBC (4.60-5.80) X10*6/uL Hgb (14.0-18.0) g/dl Hct (42.0-52.0) % MCV (80.0-98.0) fL MCH (27.0-33.0) pg MCHC (31.0-36.0) g/dl RDW (11.0-16.0) % Plt Count (160-400) X10*3/uL MPV (9.4-12.4) fL Immature Gran % (Auto) (0.0-0.4) % Neut % (Auto) (45-73) % Lymph % (Auto) (20-40) % [place] % (Auto) (2-11) % Eos % (Auto) (0-4) % Baso % (Auto) (0-2) % Lymph # (Auto) (1.2-4.9) X10*3/uL [place] # (Auto) (0.1-1.2) X10*3/uL Eos # (Auto) (0.0-0.4) X10*3/uL Baso # (Auto) (0.0-0.2) X10*3/uL Abs Immat Gran (auto) (0.00-0.03) X10*3/uL Absolute Neuts (auto) (2.0-8.3) x10*3/uL Absolute Nucleated RBC (0.0-0.012) X10*3/uL Nucleated RBC % (auto) (0.0-0.2) /100WBC Sodium (135-145) mmol/L Potassium (3.3-5.1) mmol/L Chloride (96-108) mmol/L Carbon Dioxide (22-29) mmol/L Anion Gap (12-20) BUN (9-16) mg/dL Creatinine (0.5-1.4) mg/dL Estim Creat Clear Calc Estimated GFR Random Glucose (60-115) mg/dL Calcium (8.4-10.2) mg/dL Magnesium (1.6-2.6) mg/dL Total Bilirubin (0.0-1.0) mg/dL Direct Bilirubin (0.0-0.5) mg/dL AST (5-37) U/L ALT (0-40) U/L Alkaline Phosphatase (39-117) U/L Troponin I High Sens 3.1 (<3.5-35.0) ng/L Total Protein (6.5-8.0) g/dL Albumin (3.5-5.0) g/dL Lipase (8-78) U/L TSH (0.32-4.0) uIU/mL Free T4 (0.71-1.85) ng/dL Urine Color Yellow Urine Appearance Cloudy Urine pH 6.0 (5.0-9.0) Ur Specific [place] 1.025 (1.005-1.025) Urine Protein Trace (Neg-Trace) mg/dL Urine Glucose (UA) Negative (Negative) mg/dL Urine Ketones Trace (Negative) mg/dL Urine Blood Negative (Negative) Urine Nitrite Negative (Negative) Ur Leukocyte Esterase Negative (Negative) <GEORGE Briones - Last Filed: 10/01/22 17:38> Lab Results 10/01/22 10/01/22 10/01/22 Range/Units 18:00 18:00 18:00 WBC 4.1 L (4.8-10.8) X10*3/uL RBC 3.98 L (4.60-5.80) X10*6/uL Hgb 12.3 L (14.0-18.0) g/dl Hct 36.2 L (42.0-52.0) % MCV 91.0 (80.0-98.0) fL MCH 30.9 (27.0-33.0) pg MCHC 34.0 (31.0-36.0) g/dl RDW 13.0 (11.0-16.0) % Plt Count 177 (160-400) X10*3/uL MPV 9.5 (9.4-12.4) fL Immature Gran % (Auto) 0.2 (0.0-0.4) % Neut % (Auto) 61.2 (45-73) % Lymph % (Auto) 31.9 (20-40) % [place] % (Auto) 3.6 (2-11) % Eos % (Auto) 1.9 (0-4) % Baso % (Auto) 1.2 (0-2) % Lymph # (Auto) 1.3 (1.2-4.9) X10*3/uL [place] # (Auto) 0.2 (0.1-1.2) X10*3/uL Eos # (Auto) 0.1 (0.0-0.4) X10*3/uL Baso # (Auto) 0.1 (0.0-0.2) X10*3/uL Abs Immat Gran (auto) 0.01 (0.00-0.03) X10*3/uL Absolute Neuts (auto) 2.5 (2.0-8.3) x10*3/uL Absolute Nucleated RBC 0.000 (0.0-0.012) X10*3/uL Nucleated RBC % (auto) 0.0 (0.0-0.2) /100WBC Sodium 141 (135-145) mmol/L Potassium 4.1 (3.3-5.1) mmol/L Chloride 106 (96-108) mmol/L Carbon Dioxide 27 (22-29) mmol/L Anion Gap 12 (12-20) BUN 15 (9-16) mg/dL Creatinine 1.07 (0.5-1.4) mg/dL Estim Creat Clear Calc 80.7 Estimated GFR > 60 Random Glucose 116 H (60-115) mg/dL Calcium 9.3 (8.4-10.2) mg/dL Magnesium 2.0 (1.6-2.6) mg/dL Total Bilirubin 0.4 (0.0-1.0) mg/dL Direct Bilirubin 0.1 (0.0-0.5) mg/dL AST 18 (5-37) U/L ALT 8 (0-40) U/L Alkaline Phosphatase 41 (39-117) U/L Troponin I High Sens (<3.5-35.0) ng/L Total Protein 7.0 (6.5-8.0) g/dL Albumin 4.8 (3.5-5.0) g/dL Lipase 15 (8-78) U/L TSH 75.14 H (0.32-4.0) uIU/mL Free T4 < 0.42 L (0.71-1.85) ng/dL Urine Color Urine Appearance Urine pH (5.0-9.0) Ur Specific [place] (1.005-1.025) Urine Protein (Neg-Trace) mg/dL Urine Glucose (UA) (Negative) mg/dL Urine Ketones (Negative) mg/dL Urine Blood (Negative) Urine Nitrite (Negative) Ur Leukocyte Esterase (Negative) 10/01/22 10/01/22 Range/Units 18:00 19:19 WBC (4.8-10.8) X10*3/uL RBC (4.60-5.80) X10*6/uL Hgb (14.0-18.0) g/dl Hct (42.0-52.0) % MCV (80.0-98.0) fL MCH (27.0-33.0) pg MCHC (31.0-36.0) g/dl RDW (11.0-16.0) % Plt Count (160-400) X10*3/uL MPV (9.4-12.4) fL Immature Gran % (Auto) (0.0-0.4) % Neut % (Auto) (45-73) % Lymph % (Auto) (20-40) % [place] % (Auto) (2-11) % Eos % (Auto) (0-4) % Baso % (Auto) (0-2) % Lymph # (Auto) (1.2-4.9) X10*3/uL [place] # (Auto) (0.1-1.2) X10*3/uL Eos # (Auto) (0.0-0.4) X10*3/uL Baso # (Auto) (0.0-0.2) X10*3/uL Abs Immat Gran (auto) (0.00-0.03) X10*3/uL Absolute Neuts (auto) (2.0-8.3) x10*3/uL Absolute Nucleated RBC (0.0-0.012) X10*3/uL Nucleated RBC % (auto) (0.0-0.2) /100WBC Sodium (135-145) mmol/L Potassium (3.3-5.1) mmol/L Chloride (96-108) mmol/L Carbon Dioxide (22-29) mmol/L Anion Gap (12-20) BUN (9-16) mg/dL Creatinine (0.5-1.4) mg/dL Estim Creat Clear Calc Estimated GFR Random Glucose (60-115) mg/dL Calcium (8.4-10.2) mg/dL Magnesium (1.6-2.6) mg/dL Total Bilirubin (0.0-1.0) mg/dL Direct Bilirubin (0.0-0.5) mg/dL AST (5-37) U/L ALT (0-40) U/L Alkaline Phosphatase (39-117) U/L Troponin I High Sens 3.1 (<3.5-35.0) ng/L Total Protein (6.5-8.0) g/dL Albumin (3.5-5.0) g/dL Lipase (8-78) U/L TSH (0.32-4.0) uIU/mL Free T4 (0.71-1.85) ng/dL Urine Color Yellow Urine Appearance Cloudy Urine pH 6.0 (5.0-9.0) Ur Specific [place] 1.025 (1.005-1.025) Urine Protein Trace (Neg-Trace) mg/dL Urine Glucose (UA) Negative (Negative) mg/dL Urine Ketones Trace (Negative) mg/dL Urine Blood Negative (Negative) Urine Nitrite Negative (Negative) Ur Leukocyte Esterase Negative (Negative) <Edgardo Trujillo MD - Last Filed: 10/01/22 22:53> Independent Interpretation I performed an independent interpretation of an: EKG (Sinus bradycardia heart rate 57, wave changes, no acute ST elevations depressions, normal intervals) and Plain X-Ray (Chest: No acute cardiopulmonary disease, abdomen: No evidence of bowel Obstruction) <Edgardo Trujillo MD - Last Filed: 10/01/22 22:53> Independent Historian Clinical information obtained from an independent historian. History obtained from or confirmed by: Spouse <Edgardo Trujillo MD - Last Filed: 10/01/22 22:53> External Record Review External record reviewed: Outpatient record <Edgardo Trujillo MD - Last Filed: 10/01/22 22:53> Tests considered The following testing was considered but not selected: CT scan <Edgardo Trujillo MD - Last Filed: 10/01/22 22:53> Prescription Management I considered prescription management with: Pain Medication <Edgardo Trujillo MD - Last Filed: 10/01/22 22:53> Discharge Plan Discharge Clinical Impression: Acute chest wall pain, Mucus in stool <GEORGE Briones - Last Filed: 10/01/22 17:38> Patient Disposition: Home, Self-Care <GEORGE Briones - Last Filed: 10/01/22 17:38> Instructions: Chest Pain (ED), Chest Wall Pain (ED) <GEORGE Briones - Last Filed: 10/01/22 17:38> Prescriptions: New gabapentin 300 mg capsule 300 mg PO TID Qty: 20 0RF celecoxib [Celebrex] 100 mg capsule 200 mg PO DAILY Qty: 14 0RF cyclobenzaprine 10 mg tablet 10 mg PO TID PRN (Reason: muscle spasm) Qty: 10 0RF <GEORGE Briones - Last Filed: 10/01/22 17:38> Referrals: [facility] [place] Primary [facility] [Provider Group] - 5 days <GEORGE Briones - Last Filed: 10/01/22 17:38>
[2022-10-01 18:05] LABS: MANUAL DIFF FLAG NO
[2022-10-01 18:29] LABS: Alanine Aminotransferase 8 U/L (0-40); Albumin Level 4.8 g/dL (3.5-5.0); Alkaline Phosphatase 41 U/L (39-117); Anion Gap 12 (12-20); Aspartate Amino Transferase 18 U/L (5-37); Bilirubin Direct 0.1 mg/dL (0.0-0.5); Bilirubin Total 0.4 mg/dL (0.0-1.0); Blood Urea Nitrogen 15 mg/dL (9-16); Calcium 9.3 mg/dL (8.4-10.2); Carbon Dioxide 27 mmol/L (22-29); Chloride 106 mmol/L (96-108); Creatinine Clr Calc Pharmacy 80.7; Estimated Glomerular Filt Rate > 60; Glucose Random 116 mg/dL (60-115); Lipase 15 U/L (8-78); Potassium 4.1 mmol/L (3.3-5.1); Sodium 141 mmol/L (135-145)
[2022-10-01 18:41] LABS: Troponin-I High Sensitivity 3.1 ng/L (<3.5-35.0)
[2022-10-01 18:56] LABS: TSH reflex Free T4 75.14 uIU/mL (0.32-4.0)
[2022-10-01 18:58] LABS: Basophils Absolute Auto 0.1 X10*3/uL (0.0-0.2); Basophils Percent Auto 1.2 % (0-2); Eosinophils Absolute Auto 0.1 X10*3/uL (0.0-0.4); Eosinophils Percent Auto 1.9 % (0-4); Hematocrit 36.2 % (42.0-52.0); Hemoglobin 12.3 g/dl (14.0-18.0); Imm Gran Abs Auto 0.01 X10*3/uL (0.00-0.03); Imm Gran Pct Auto 0.2 % (0.0-0.4); Lymphocytes Absolute Auto 1.3 X10*3/uL (1.2-4.9); Lymphocytes Percent Auto 31.9 % (20-40); Mean Corpuscular Hemoglobin 30.9 pg (27.0-33.0); Mean Platelet Volume 9.5 fL (9.4-12.4); Monocytes Absolute Auto 0.2 X10*3/uL (0.1-1.2); Monocytes Percent Auto 3.6 % (2-11); Neutrophils Absolute Auto 2.5 x10*3/uL (2.0-8.3); Neutrophils Percent Auto 61.2 % (45-73); Platelet Count 177 X10*3/uL (160-400); Red Blood Count 3.98 X10*6/uL (4.60-5.80); White Blood Count 4.1 X10*3/uL (4.8-10.8)
[2022-10-01 19:28] LABS: Appearance Urine Cloudy; Color Urine Yellow; Glucose Urine UA Negative (Negative); Leukocyte Esterase Urine Negative (Negative); Nitrite Urine Negative (Negative); Specific Gravity - Urine 1.025 (1.005-1.025); Urine Blood Negative (Negative); Urine Ketones Trace mg/dL (Negative); Urine Protein Trace mg/dL (Neg-Trace)
[2022-10-01 20:05] LABS: Free T4 (Free Thyroxine) < 0.42 ng/dL (0.71-1.85)
[2022-10-01 21:08] VITALS: BP 188/97; PULSE 52; RESP 16; TEMP 37.1; O2SAT 100
[2022-10-01] MEDS: Gabapentin 300 MG CAPSULE PO (21:58)
[2022-10-01] MEDS: oxyCODONE HCl Immed Release 5 MG TABLET PO (21:58)
[2022-10-01] MEDS: Cyclobenzaprine HCl 10 MG TABLET PO (21:58)
[2022-10-01] MEDS: Ketorolac Tromethamine 30 MG/ML VIAL IM (21:59)
== END 2022-10-01 23:07 | disposition home or self-care (01) ==
PROVIDERS: Physician Assistant; Emergency Provider Emergency Medicine
DX: R07.89 Other chest pain (principal); R19.5 Other fecal abnormalities; I10 Essential (primary) hypertension; F12.90 Cannabis use, unspecified, uncomplicated; Z79.899 Other long term (current) drug therapy
CPT/HCPCS: 36415; 71046; 74018; 80048; 80076; 81003; 83690; 83735; 84439; 84443; 84484; 85025; 93005; 96372; 99284; J1885